=== PATIENT | female | born 1950 | race Caucasian/White ===

== ENCOUNTER 2016-08-17 06:56 | Day surgery (SDC) | payer OTHER ==
[~2016-08-17] VITALS: Ht 152.4 cm; Wt 77.9 kg
[~2016-08-17 06:56] MED LIST: ALBU8.5H3 INH; AZIT250T94 PO; BENZ100C70 PO; FLUT9.9S NASAL; LORA-441 PO; MECL25TA2 PO; PRED20TA PO; PROM6.25 PO; PSEU30TA38 PO
[2016-08-17 07:53] VITALS: Ht 152.4 cm; Wt 77.9 kg
[2016-08-17 08:26] VITALS: BP 118/61; PULSE 64; RESP 18
[2016-08-17] MEDS ORDERED: FENTAnyl 50 MCG/ML VIAL ONE (09:10)
[2016-08-17] MEDS ORDERED: MIDAZOLAM 1 MG/ML 2 ML INJ ONE ×2 (09:10)
[2016-08-17 09:35] VITALS: BP 126/66; PULSE 59; RESP 18
--- NOTE | 2016-08-17 10:05 | GILP ---
DATE OF PROCEDURE: NAME OF PROCEDURES: Colonoscopy and biopsy. SURGEON: Arianna Nazario MD PREOPERATIVE DIAGNOSIS: Screening colonoscopy. POSTOPERATIVE DIAGNOSES: 1. Colonoscopy all the way to the cecum. 2. Three small colon polyps were removed using the biopsy forceps. 3. Diverticulosis of the colon. 4. Internal hemorrhoids. INDICATION FOR THE PROCEDURE: Ms. Inna Talavera is a 65-year-old female patient who was scheduled for screening colonoscopy. The procedure and possible complications were well explained to the patient. The patient understood and consented to the procedure. DESCRIPTION OF PROCEDURE: Under the influence of fentanyl and Versed, the colonoscope was carefully introduced in the rectum and under direct vision, it was advanced all the way to the cecum. FINDINGS: The patient had 3 small colon polyps and they were removed using the biopsy forceps. The patient was noted to have diverticulosis of the colon and internal hemorrhoids. She tolerated the procedure very well and there was no complication from the procedure. At the end of the procedure, she was awake with stable vital signs and she was discharged home to the care of h er family. IMPRESSION: 1. Colonoscopy all the way to the cecum. 2. Three small colon polyps were removed using the biopsy forceps. 3. Diverticulosis of the colon. 4. Internal hemorrhoids. PLAN: 1. Await histopathology report. 2. Next screening colonoscopy in 5 years. Dictated By: ARIANNA VICTORIA/CHIQUI Conf#: [id number] DID#: [id number]
== END 2016-08-17 11:53 | disposition home or self-care (01) ==
LOC: GIL 06:56
PROVIDERS: ATTEND Internal Medicine Gastroenterology
DX: Z12.11 Encounter for screening for malignant neoplasm of colon (principal); K63.5 Polyp of colon; K57.90 Diverticulosis of intestine, part unspecified, without perforation or abscess without bleeding; K64.8 Other hemorrhoids
CPT/HCPCS: 45380; 88305; J2250; J3010; Z7610

== ENCOUNTER 2016-11-16 14:24 | Emergency (ER) | payer OTHER ==
[~2016-11-16] VITALS: Ht 152.4 cm; Wt 78.5 kg
[2016-11-16 14:33] VITALS: Ht 152.4 cm; Wt 78.5 kg
[2016-11-16] MEDS ORDERED: KETOROLAC 30 MG INJ IM STA (15:19)
[2016-11-16] MEDS ORDERED: HYDROCODONE/APAP (5/325) TAB PO ONE (15:30)
--- NOTE | 2016-11-16 17:11 | RADRPT ---
PROCEDURE: XR Lumbar Spine. CLINICAL INDICATION: Lumbar spine pain. TECHNIQUE: AP, lateral, and cone-down lateral view of the lumbar spine were obtained. COMPARISON: No prior studies are available for comparison. FINDINGS: There is a moderate right convex scoliosis centered at L2-3 with gentle levo convexity centered at L 4-5. There is mild asymmetric right-sided disc-space height loss at L4-5 and mild asymmetric left-s ided disc-space height loss at L2-3. The vertebral body heights are within normal limits, allowing for the scoliotic deformity There are anterior osteophytes from L1-S1 with mild to moderate narrowi ng of the intervertebral disc spaces at L1-2, L2-3 and L4-5. There are mild associated discogenic e ndplate changes at these level. The vertebral body heights and marrow density are normal in appearan ce. There is is moderate facet spondylosis at L4-5 and L5-S1 with suggestion of neural foraminal na rrowing at L5-S1. The remaining neural foramina appear patent. The paraspinal soft tissues unremar kable. There is no evidence of fracture. There are multilevel mild degenerative changes of the int erspinous articulations IMPRESSION: 1. Multilevel mild to moderate spondylosis/degenerative enthesopathy at L1-2, L2-3 and L4-5 with as sociated S-shaped scoliosis as discussed above. 2. Moderate facet spondylosis at L4-5 and L5-S1 with suggestion of neural foraminal narrowing at L5 -S1. 3. No definite acute compression fracture, though slightly limited due to the scoliotic deformity. RPTAT: HGAS .Bora Martinez MD, Date Time Electronically viewed and signed by .Bora Martinez MD, on 11/16/2016 17:11 .S/
--- NOTE | 2016-11-16 17:11 | RADRPT ---
PROCEDURE: XR Hip. CLINICAL INDICATION: Left hip pain. TECHNIQUE: AP and frog lateral views of the left hip were performed. COMPARISON: None available FINDINGS: There is normal appearance of the left hip joint without significant sclerosis or joint space narrow ing. The proximal left femur is normal in appearance. There is no evidence of fracture. The aceta bulum is intact. There is no significant osteopenia. The visualized sacrum is unremarkable. The s oft tissues are normal in appearance. IMPRESSION: 1. Normal radiographs of the left hip. No evidence of fracture or dislocation. RPTAT: HGAS .Bora Martinez MD, Date Time Electronically viewed and signed by .Bora Martinez MD, on 11/16/2016 17:11 .S/
[2016-11-16] MEDS ORDERED: IBUP-1542 PO (17:16)
[2016-11-16] MEDS ORDERED: TRAM50TA2 PO (17:16)
--- NOTE | 2016-11-16 17:20 | ERD ---
ER Documentation Chief Complaint Date/Time DATE: 11/16/16 TIME: 17:18 Chief Complaint Pt c/o L Leg pain X 1 week, no fall or injury reported. HPI This 66-year-old female complains of left thigh and buttock pain for last week. She denies any fall or inciting events. She denies bowel or bladder incontinence, weakness, fevers, urinary complaints. ROS All systems reviewed and are negative except as per history of present illness. Medications Home Meds Active Scripts Ibuprofen* (Motrin*) 600 Mg Tab, 600 MG PO Q6, #20 TAB Prov:SYD TORIBIO MD 11/16/16 Tramadol HCl (Tramadol HCl) 50 Mg Tablet, 50 MG PO Q4 Y for PAIN, #20 TAB Prov:SYD TORIBIO MD 11/16/16 Reported Medications [None] No Conflict Check 08/17/16 Allergies Allergies: Coded Allergies: No Known Allergy (Unverified , 06/29/15) PMhx/Soc History of Surgery: No Anesthesia Reaction: No Hx Neurological Disorder: No Hx Respiratory Disorders: No Hx Cardiac Disorders: No Hx Psychiatric Problems: No Hx Miscellaneous Medical Probl: No Hx Alcohol Use: No Hx Substance Use: No Hx Tobacco Use: No Smoking Status: Never smoker Physical Exam Vitals Vital Signs Date Time Temp Pulse Resp B/P Pulse Ox O2 Delivery O2 Flow Rate FiO2 11/16/16 14:33 98.0 74 16 124/58 96 Physical Exam Const: [] Alert, [id number] per Head: Atraumatic Eyes: Normal Conjunctiva ENT: Normal External Ears, Nose and Mouth. Neck: Full range of motion..~ No meningismus. Resp: Clear to auscultation bilaterally Cardio: Regular rate and rhythm, no murmurs Abd: Soft, non tender, non distended. Normal bowel sounds Skin: No petechiae or rashes Back: No midline or flank tenderness. Tenderness left lateral hip and left L4-5 paraspinous area. No midline tenderness or deformities. Patient is ambulatory with discomfort but without weakness or deficits. Ext: No cyanosis, or edema Neur: Awake and alert Psych: Normal Mood and Affect Results 24 hrs Current Medications Medications (Trade) Dose Ordered Sig/Geovany Route PRN Reason Start Time Stop Time Status Last Admin Dose Admin Ketorolac Tromethamine (Toradol) 30 mg ONCE STAT IM 11/16/16 15:19 11/16/16 15:21 DC 11/16/16 15:32 Acetaminophen/ Hydrocodone Bitart ([place] (5/325)) 1 tab ONCE ONCE PO 11/16/16 15:30 11/16/16 15:31 DC 11/16/16 15:32 Procedures/MDM X-ray LS-Spine 3V Interpreted by me: Bones: [No fracture] Joints: [No dislocation] Foreign body: [None]. Patient had a degenerative changes lumbar spine without fracture dislocation. X-ray left hip 2V Interpreted by me: Bones: [No fracture] Joints: [No dislocation] Foreign body: [None] impression-normal left hip x-ray Patient was given Toradol 30 mg IM and [place] 5 mg of mouth. Patient since symptoms of sciatica without evidence of epidural abscess, cauda equina syndrome , fracture, dislocation, ischemia, urinary etiology. She will treated with tramadol ibuprofen and instructions for back exercises. The patient was stable with no new complaints during the ER course. Clinically, there is no current evidence to suggest meningitis, sepsis, acute abdomen, pneumonia, acute coronary syndrome, pulmonary embolism, or any other emergent condition appearing to require further evaluation or hospitalization. The patient should certainly return for any new or worsening symptoms per the aftercare instructions. They should otherwise follow-up with her primary care doctor for reevaluation this week. Departure Diagnosis: Primary Impression: Sciatica Laterality: left Qualified Code: M54.32 - Sciatica of left side Condition: Stable Patient Instructions: Back Exercises, Lumbar, Back Pain W/ Sciatica Additional Instructions: PROBAMALAMNETE ES DEL ESPALDA Y NERVIO. Examines normal hoy. Cheque otro vez con constantino doctor primario en el proximo coyle or regresa para mas o nueva simptomas. SYD TORIBIO MD Nov 16, 2016 17:20
== END 2016-11-16 17:39 | disposition home or self-care (01) ==
LOC: FTE 14:24
DX: M54.32 Sciatica, left side (principal)
CPT/HCPCS: 72100; 73510; 96372; J1885; Z7502; Z7610

== ENCOUNTER 2016-11-28 10:01 | Emergency (ER) | payer OTHER ==
[~2016-11-28] VITALS: Ht 157.5 cm; Wt 78.0 kg
[~2016-11-28 10:01] MED LIST changes: -ALBU8.5H3 INH; -AZIT250T94 PO; -BENZ100C70 PO; -FLUT9.9S NASAL; +IBUP-1542 PO; -LORA-441 PO; -MECL25TA2 PO; -PRED20TA PO; -PROM6.25 PO; -PSEU30TA38 PO; +TRAM50TA2 PO
[2016-11-28 10:04] VITALS: Ht 157.5 cm; Wt 78.0 kg
[2016-11-28] MEDS ORDERED: KETOROLAC 30 MG INJ IM STA (10:31)
--- NOTE | 2016-11-28 10:37 | ERD ---
ER Documentation Chief Complaint Date/Time DATE: 11/28/16 TIME: 10:32 Chief Complaint BACK PAIN X 3 DAYS HPI This is a 66-year-old female presenting to the emergency department with left lower back pain that radiates down to left hip and left thigh. Patient states she has had this pain before and was seen on 11/16/2016 and diagnosed with likely sciatica back pain. Patient states pain is 6/10 at rest and worsens with positional changes. Patient denies calf pain or tenderness. No swelling of extremities. Patient has difficulty ambulating at times due to pain. No weakness. No chest pain, chest pressure, heart palpitations, shortness breath or difficulty breathing. No abdominal pain. No nausea, vomiting or diarrhea. No dysuria, hematuria, urinary frequency or urinary urgency. No saddle anesthesia. No urinary or fecal incontinence. No numbness or tingling. ROS All systems reviewed and are negative except as per history of present illness. Medications Home Meds Active Scripts Naproxen* (Naprosyn*) 500 Mg Tablet, 500 MG PO BID Y for PAIN AND/OR INFLAMMATION, #20 TAB Prov:FARZANEH WILKES NP 11/28/16 Hydrocodone/Acetaminophen ([place] 5-325 Tablet) 1 Each Tablet, 1 TAB PO Q6H Y for PAIN, #7 TAB Prov:FARZANEH WILKES NP 11/28/16 Ibuprofen* (Motrin*) 600 Mg Tab, 600 MG PO Q6, #20 TAB Prov:SYD TORIBIO MD 11/16/16 Tramadol HCl (Tramadol HCl) 50 Mg Tablet, 50 MG PO Q4 Y for PAIN, #20 TAB Prov:SYD TORIBIO MD 11/16/16 Reported Medications [None] No Conflict Check 08/17/16 Allergies Allergies: Coded Allergies: No Known Allergy (Unverified , 11/28/16) PMhx/Soc History of Surgery: No Anesthesia Reaction: No Hx Neurological Disorder: No Hx Respiratory Disorders: No Hx Cardiac Disorders: No Hx Psychiatric Problems: No Hx Miscellaneous Medical Probl: No Hx Alcohol Use: No Hx Substance Use: No Hx Tobacco Use: No Physical Exam Vitals Vital Signs Date Time Temp Pulse Resp B/P Pulse Ox O2 Delivery O2 Flow Rate FiO2 11/28/16 10:04 97.5 75 16 136/63 97 Physical Exam Const: No acute distress, alert Head: Atraumatic Eyes: Normal Conjunctiva ENT: Normal External Ears, Nose and Mouth. Neck: Full range of motion..~ No meningismus. Resp: Clear to auscultation bilaterally Cardio: Regular rate and rhythm, no murmurs Abd: Soft, non tender, non distended. Normal bowel sounds Skin: No petechiae or rashes Back: No midline or flank tenderness. Tenderness left lateral hip and left L4-5 paraspinous area. No midline tenderness or deformities. Patient is ambulatory with discomfort but without weakness or deficits. Sensation fully intact. Unable to perform straight leg raise after several attempts. Ext: No cyanosis, or edema Neur: Awake and alert Psych: Normal Mood and Affect Results 24 hrs Current Medications Medications (Trade) Dose Ordered Sig/Geovany Route PRN Reason Start Time Stop Time Status Last Admin Dose Admin Ketorolac Tromethamine (Toradol) 30 mg ONCE STAT IM 11/28/16 10:31 11/28/16 10:32 DC 11/28/16 10:40 Acetaminophen/ Hydrocodone Bitart ([place] (5/325)) 1 tab ONCE ONCE PO 11/28/16 11:00 11/28/16 11:01 DC 11/28/16 10:40 Procedures/MDM MDM: 66 year old female presenting to ER with left lower back pain x 3 days. Patient was seen here on 11/16 and was diagnosed with likely sciatica back pain. Patient states pain is same except pain is "worse." Rating pain 6/10 at rest and worse with position changes and certain movements. No fevers. No urinary or fecal incontinence. No saddle anesthesia. No one sided weakness. No new symptoms or new pain. No dysuria or hematuria. No chest pain, shortness of breath or difficulty breathing. Upon reassessment, patient states pain has improved. Patient is ambulating without weakness or deficits. Sensation is fully intact. Low suspicion for cauda equina syndrome, acute fracture, acute dislocation, epidural abscess, malignancy and AAA rupture. Differential Diagnosis includes but is not limited to back strain, sciatica, vertebral fracture, herniated disc, spinal stenosis and nephrolithiasis. Patient is appropriate for outpatient management will be given prescription for Naprosyn 500 mg #20 and [place] 5 mg/325 mg #7. Instructed patient to follow-up with primary care provider and that she may need physical therapy. Return to ED for any high fever, chest pain, difficulty breathing, shortness breath, wheezing, vomiting, diarrhea, abdominal pain or any new or worsening symptoms. Patient verbalizes understanding. All questions answered at discharge. Faroese translation use during this encounter. Departure Diagnosis: Primary Impression: Back pain Back pain location: low back pain Chronicity: unspecified Back pain laterality: left Sciatica presence: with sciatica Sciatica laterality: sciatica of left side Qualified Code: M54.42 - Left-sided low back pain with left-sided sciatica, unspecified chronicity Condition: FARZANEH Valadez NP Nov 28, 2016 10:37
[2016-11-28] MEDS ORDERED: HYDROCODONE/APAP (5/325) TAB PO ONE (11:00)
[2016-11-28] MEDS ORDERED: HYDR-906 PO (11:37)
[2016-11-28] MEDS ORDERED: NAPR-260 PO (11:37)
== END 2016-11-28 11:40 | disposition home or self-care (01) ==
LOC: FTE 10:01
DX: M54.42 Lumbago with sciatica, left side (principal)
CPT/HCPCS: 96372; J1885; Z7502; Z7610

== ENCOUNTER 2017-10-17 14:55 | Emergency (ER) | END 2017-10-17 16:45 | disposition home or self-care (01) ==

== ENCOUNTER 2017-10-19 14:59 | Emergency (ER) | END 2017-10-19 17:36 | disposition home or self-care (01) ==

== ENCOUNTER 2018-12-04 10:02 | Emergency (ER) | payer MEDICARE, OTHER ==
[~2018-12-04] VITALS: Ht 154.9 cm; Wt 75.0 kg
[~2018-12-04 10:02] MED LIST changes: +CITA20TA8 PO; +HYDR-4011 PO; +LORA0.5T PO; +MECL12.574 PO; +NAPR-985 PO
[2018-12-04 10:05] VITALS: BP 144/63; PULSE 77; RESP 18; Ht 154.9 cm; Wt 75.0 kg
[2018-12-04] MEDS ORDERED: PHENAZOPYRIDINE 100 MG TAB PO ONE (11:00)
[2018-12-04] MEDS ORDERED: CEPH-443 PO (11:25)
[2018-12-04] MEDS ORDERED: NYST15CR28 TOP (11:25)
--- NOTE | 2018-12-04 11:38 | ERD ---
ER Documentation Chief Complaint Chief Complaint painful urination , vaginal pain x 1 day HPI This is a 68-year-old who presents ED with complaints of dysuria x1 day. Patient admits to increased frequency of urination, going to the bathroom more frequently. Admits to vaginal itching but denies any vaginal pain. Denies hematuria, vaginal pain, vaginal discharge, fever, chills, nausea, vomiting, diarrhea, constipation, abdominal pain and all other symptoms. ROS All systems reviewed and are negative except as per history of present illness. Medications Home Meds Active Scripts Nystatin* (Nystatin*) 15 Gm Cr, 1 APPLIC TOP TID for 7 Days, TUB Prov:CYNTHIA BABCOCK PA-C 12/04/18 Cephalexin* (Keflex*) 500 Mg Capsule, 500 MG PO BID for 7 Days, CAP Prov:CYNTHIA BABCOCK PA-C 12/04/18 Meclizine Hcl* (Antivert*) 12.5 Mg Tab, 12.5 MG PO Q6H PRN for DIZZINESS, #20 TAB Prov:BRANDIE POLLARD MD 10/19/17 Ibuprofen* (Motrin*) 600 Mg Tab, 600 MG PO Q6H PRN for PAIN AND OR ELEVATED TEMP, #30 TAB Prov:BRANDIE POLLARD MD 10/19/17 Naproxen* (Naprosyn*) 500 Mg Tablet, 500 MG PO BID PRN for PAIN AND/OR INFLAMMATION, #20 TAB Prov:FARZANEH WILKES NP 11/28/16 Hydrocodone/Acetaminophen ([place] 5-325 Tablet) 1 Each Tablet, 1 TAB PO Q6H PRN for PAIN, #7 TAB Prov:FARZANEH WILKES NP 11/28/16 Ibuprofen* (Motrin*) 600 Mg Tab, 600 MG PO Q6, #20 TAB Prov:SYD TORIBIO MD 11/16/16 Tramadol HCl (Tramadol HCl) 50 Mg Tablet, 50 MG PO Q4 PRN for PAIN, #20 TAB Prov:SYD TORIBIO MD 11/16/16 Reported Medications Lorazepam* (Lorazepam*) 0.5 Mg Tablet, 0.25 MG PO HS PRN for ANXIETY, TAB 10/19/17 Citalopram Hydrobromide* (Citalopram Hydrobromide*) 20 Mg Tablet, 20 MG PO DAILY, #30 TAB 10/19/17 [None] No Conflict Check 08/17/16 Allergies Allergies: Coded Allergies: No Known Allergy (Unverified , 12/04/18) PMhx/Soc History of Surgery: Yes (Hysterectomy) Anesthesia Reaction: No Hx Neurological Disorder: No Hx Respiratory Disorders: No Hx Cardiac Disorders: No Hx Psychiatric Problems: No Hx Miscellaneous Medical Probl: Yes (Gastritis) Hx Alcohol Use: No Hx Substance Use: No Hx Tobacco Use: No Smoking Status: Current every day smoker Physical Exam Vitals Vital Signs Date Temp Pulse Resp B/P (MAP) Pulse Ox O2 O2 Flow FiO2 Time Delivery Rate 12/04/18 98.1 77 18 144/63 98 10:05 (90) Physical Exam Physical Exam Vitals signs: Reviewed by me. General: Well developed, well nourished, in no acute distress. Patient is awake and alert. Head: Normocephalic, atraumatic. Eyes: Normal conjunctiva, Pupils PERRLA, EOM intact grossly ENT: Pharynx is clear, Moist mucous membranes, external ears, nose and mouth normal Neck: Supple, no masses, lymphadenopathy or JVD Respiratory: Clear to auscultation bilaterally with no wheezing, rhonchi, rales, no distress Cardiovascular: RRR, no murmurs, rubs, or gallops Abdominal: Soft, non-tender, non-distended, no peritoneal signs : Deferred MSK: No edema, no unilateral swelling, 5/5 strength Back: No midline tenderness. No flank tenderness Neurologic: Alert and oriented, moving all extremities, normal speech, no focal weakness, no cerebellar signs. Normal mentation Skin: warm and dry, No rash Psych: Normal mood Results 24 hrs Laboratory Tests Test 12/04/18 10:54 Urine Color YELLOW Urine Clarity CLOUDY Urine pH 5.0 Urine Specific [place] 1.019 Urine Ketones NEGATIVE mg/dL Urine Nitrite NEGATIVE mg/dL Urine Bilirubin NEGATIVE mg/dL Urine Urobilinogen NEGATIVE mg/dL Urine Leukocyte Esterase 2+ Yanci/ul Urine Microscopic RBC > 182 /HPF Urine Microscopic WBC > 182 /HPF Urine Squamous Epithelial Cells FEW /HPF Urine Mucus FEW /HPF Urine Hemoglobin 3+ mg/dL Urine Glucose NEGATIVE mg/dL Urine Total Protein NEGATIVE mg/dl Current Medications Medications Dose Sig/Geovany Start Time Status Last (Trade) Ordered Route PRN Stop Time Admin Dose Reason Admin 100 mg ONCE ONCE 12/04/18 DC 12/04/18 Phenazopyridi PO 11:00 10:52 ne HCl 12/04/18 11:01 (Pyridium) Procedures/MDM LAB INTERPRETATION: Urinalysis shows greater than 182 WBCs, over 182 RBCs, 2+ leukocyte esterase ER COURSE: The patient was given Pyridium The medication was well tolerated and the patient reports improvement in symptoms. The patient was stable throughout ED course. I kept the patient and/or family informed of laboratory and diagnostic imaging results throughout the emergency room course. The patient was promptly evaluated and a treatment plan was devised based on H&P and other data. This plan was discussed with the patient who agreed and had no further questions or concerns prior to discharge. MEDICAL DECISION MAKING: This is a 68-year-old female presents ED with complaints of dysuria x1 day. Urinalysis reflects UTI. Otherwise physical examination is unremarkable. At this time there is no evidence of genitourinary emergency. No evidence of obstructive pyelonephritis, sepsis, septic stone, appendicitis, small bowel obstruction, perforated viscus, appendicitis, among others. Vitals are stable patient can be managed with close outpatient follow-up. Advised patient follow- up with primary care in the next 48 hours. Return to ED with any worsening symptoms DISPOSITION PLAN: We discussed follow up with the patient's primary care doctor within 24 to 48 hours. Patient counseled regarding my diagnostic impression and care plan. Prior to discharge all questions answered. Pt agrees with treatment plan and understands strict return precautions. Precautionary instructions provided including instructions to return to the ER if not improving or for any worsening or changing symptoms or concerns. SPECIALIST FOLLOW UP RECOMMENDED: None Patient has been advised to follow up with primary care in 1-2 days. Disclaimer: Inadvertent spelling and grammatical errors are likely due to EHR/dictation software use and do not reflect on the overall quality of patient care. Also, please note that the electronic time recorded on this note does not necessarily reflect the actual time of the patient encounter. Departure Diagnosis: Primary Impression: UTI (urinary tract infection) Urinary tract infection type: site unspecified Hematuria presence: without hematuria Qualified Codes: N39.0 - Urinary tract infection, site not specified Condition: Stable Patient Instructions: Understanding Urinary Tract Infections (UTIs) [facility] Additional Instructions: Paciente aconseja volver a Departamento de urgencias inmediatamente para sntomas nuevos o que empeoran . Paciente aconseja posteriores con el PCP en 1-2 altman . Paciente verbaliza la comprehensin y est de acuerdo con el tratamiento y el curso de accin. Si el paciente no tiene ninguna de atencin primaria pueden seguir con [facility] [address] [place] [address] o [facility] + [address] [address] CYNTHIA BABCOCK PA-C Dec 04, 2018 11:38
== END 2018-12-04 11:36 | disposition home or self-care (01) ==
LOC: FTE 10:02
DX: N39.0 Urinary tract infection, site not specified (principal); F17.210 Nicotine dependence, cigarettes, uncomplicated
CPT/HCPCS: 81001; 99283